=== PATIENT | female | born 1995 | race Caucasian/White ===

== ENCOUNTER 2017-11-25 14:19 | Emergency (ER) | payer OTHER ==
[~2017-11-25] VITALS: Ht 152.4 cm; Wt 78.0 kg
[2017-11-25 15:29] VITALS: BP 105/62
[2017-11-25 15:51] LABS: HIV ANTIBODY 1&2 RAPID NON-REACTIVE (Neg)
[2017-11-28 05:21] LABS: HEP B CORE AB, IGM Negative (Negative); HEP B CORE AB, TOT Negative (Negative); HEPATITIS C ANTIBODY 0.2 s/co ratio (0.0-0.9)
== END 2017-11-25 15:30 | disposition home or self-care (01) ==
LOC: ER 14:19
DX: Z77.21 Contact with and (suspected) exposure to potentially hazardous body fluids (principal); F17.200 Nicotine dependence, unspecified, uncomplicated
CPT/HCPCS: 36415; 86703; 86704; 86705; 86706; 86803; 99284

== ENCOUNTER 2018-07-09 12:39 | Emergency (ER) | payer MEDICAID, OTHER ==
[~2018-07-09] VITALS: Ht 152.4 cm; Wt 65.9 kg
[2018-07-09 13:22] LABS: BASOPHILS # (AUTO) 0.1 X10'3 (0-0.2); BASOPHILS % (AUTO) 0.7 % (0-1); EOSINOPHILS % (AUTO) 0.2 % (0-6); HEMATOCRIT 39.3 % (35.0-45.0); HEMOGLOBIN 13.5 g/dl (12.0-16.0); LYMPHOCYTES # (AUTO) 1.6 X10'3 (1.1-4.8); LYMPHOCYTES % (AUTO) 21.3 % (21-51); MEAN CORPUSCULAR HEMOGLOBIN 29.7 PG (27.0-31.0); MEAN CORPUSCULAR HGB CONC 34.3 g/dL (33.0-36.5); MEAN CORPUSCULAR VOLUME 86.6 FL (78-98); MONOCYTES # (AUTO) 0.5 X10'3 (0-0.9); MONOCYTES % (AUTO) 6.5 % (2-12); NEUTROPHILS # (AUTO) 5.4 X10'3 (1.8-7.7); NEUTROPHILS % (AUTO) 71.3 % (42-75); PLATELET COUNT 316 X10'3 (140-440); RED BLOOD COUNT 4.54 X10'6 (4.20-5.60); RED CELL DISTRIBUTION WIDTH 13.3 % (11.5-14.5); WHITE BLOOD COUNT 7.6 X10'3 (4.5-11.0)
[2018-07-09 13:33] LABS: PARTIAL THROMBOPLASTIN TIME 28 SECONDS (22-32)
[2018-07-09 13:47] LABS: ALANINE AMINOTRANSFERASE 42 U/L (12-78); ALBUMIN 3.7 G/DL (3.4-5.0); ALBUMIN/GLOBULIN RATIO 0.9 (1.1-1.5); ALKALINE PHOSPHATASE 66 IU/L (46-116); ANION GAP 8 (8-16); ASPARTATE AMINO TRANSFERASE 20 U/L (10-37); BILIRUBIN,TOTAL 0.6 MG/DL (0.1-1.0); BLOOD UREA NITROGEN 8 MG/DL (7-18); BUN/CREATININE RATIO 11.3 (6.6-38.0); CALCIUM 9.6 MG/DL (8.5-10.1); CHLORIDE 104 MMOL/L (99-107); CREATININE 0.71 MG/DL (0.40-0.90); GLUCOSE 116 MG/DL (70-104); POTASSIUM 3.6 MMOL/L (3.5-5.1); SODIUM 138 MMOL/L (135-145); TOTAL CARBON DIOXIDE 25.8 MMOL/L (24-32); TOTAL PROTEIN 7.8 G/DL (6.4-8.2); eGFR > 90 ML/MIN
[2018-07-09 14:00] VITALS: BP 120/67
== END 2018-07-09 14:03 | disposition home or self-care (01) ==
LOC: ER 12:39
DX: R07.89 Other chest pain (principal)
CPT/HCPCS: 36415; 71045; 80053; 84484; 85025; 85610; 85730; 93005; 99284

== ENCOUNTER 2019-08-16 15:58 | Emergency (ER) | payer SELFPAY ==
[~2019-08-16] VITALS: Ht 152.4 cm; Wt 66.0 kg
[2019-08-16 17:25] VITALS: BP 108/58
== END 2019-08-16 17:26 | disposition home or self-care (01) ==
LOC: ER 16:00
DX: S27.818A Other injury of esophagus (thoracic part), initial encounter (principal); R05 Cough; J02.9 Acute pharyngitis, unspecified; X58.XXXA Exposure to other specified factors, initial encounter; Y93.89 Activity, other specified; Y92.89 Other specified places as the place of occurrence of the external cause; Y99.8 Other external cause status
CPT/HCPCS: 93005; 99283

== ENCOUNTER 2020-02-21 10:39 | Emergency (ER) | payer MEDICAID ==
[~2020-02-21] VITALS: Ht 152.4 cm; Wt 62.3 kg
[2020-02-21 10:47] VITALS: BP 112/73
[2020-02-21] MEDS ORDERED: AMOX-100 PO (12:29)
[2020-02-21] MEDS ORDERED: HYDR-3965 PO (12:29)
== END 2020-02-21 12:47 | disposition home or self-care (01) ==
LOC: ER 10:40
DX: K04.7 Periapical abscess without sinus (principal); R51.9 Headache, unspecified; H57.12 Ocular pain, left eye; Z79.2 Long term (current) use of antibiotics; Z79.899 Other long term (current) drug therapy
CPT/HCPCS: 99283

== ENCOUNTER 2023-12-16 09:57 | Emergency (ER) | payer MEDICAID ==
[~2023-12-16] VITALS: Ht 172.7 cm; Wt 68.0 kg
[2023-12-16] MEDS: acetaminophen 325mg tablet PO STA (11:01)
[2023-12-16] MEDS: amoxicillin 250mg capsule PO STA (11:02)
[2023-12-16] MEDS ORDERED: HYDR-3965 PO (11:02)
[2023-12-16] MEDS ORDERED: AMOX875T10 PO (11:02)
[2023-12-16 11:09] VITALS: BP 120/79; PULSE 70; RESP 15; TEMP 98; O2SAT 99
== END 2023-12-16 11:09 | disposition home or self-care (01) ==
LOC: ER 09:58
DX: K08.89 Other specified disorders of teeth and supporting structures (principal)
CPT/HCPCS: 99283